=== PATIENT | male | born 1940 | race African-American/Black ===

== ENCOUNTER 2018-01-07 10:42 | Emergency (ER) | payer MEDICARE, OTHER, SELFPAY ==
--- NOTE | 2018-01-07 10:42 | DT_ITS ---
This patient was seen during an EMR downtime January 03, 2018 - January 10, 2018. This patient may have a combination of paper and electronic documentation or all paper documentation. All documentation is viewable within the e-chart portion of [employer] for each patient visit.
--- NOTE | 2018-01-07 12:34 | EKG12_ITS ---
Test Reason : HYPERTENSION Blood Pressure : / mmHG Vent. Rate : 036 BPM Atrial Rate : 234 BPM P-R Int : 000 ms QRS Dur : 182 ms QT Int : 560 ms P-R-T Axes : 000 138 -10 degrees QTc Int : 433 ms Atrial flutter Right bundle branch block T wave abnormality, consider inferior ischemia Abnormal ECG Confirmed by QUINTON ART, BETY ([id number]), acquisitions editor DYLAN ALFREDO ([id number] on 01/12/2018 5:30:55 PM Referred By: Manuel Lamas Confirmed By:BETY ALCANTARA MD
[2018-01-10 15:50] LABS: Basophil% 0.2 % (0-1); Hematocrit 39.1 % (40-54); Hemoglobin 12.7 g/dl (13.0-16.5); Lymphocyte % 39.2 % (19-41); Mean Corp Hgb Conc 32.5 g/gl (32-36); Mean Corpuscular Hgb 30.5 pg (27.0-32.0); Mean Corpuscular Volume 93.8 fL (80-94); Mean Platelet Vol. 10.1 fl (6.2-12.0); Neutrophil # 3.02 X10^3/uL (2.7-7.7); Neutrophil % 51.6 % (47-70); POSITIVE COUNT NO; POSITIVE DIFFERENTIAL NO; POSITIVE MORPHOLOGY NO; Platelet Count 261 K/mm3 (150-450); RBC Distribution Width CV 17.1 % (11.6-14.6); RBC Distribution Width SD 57.6 fl (35.1-43.9); Red Blood Count 4.17 M/mm3 (4.6-6.2); White Blood Count 5.9 K/mm3 (4.4-11.0)
[2018-01-10 15:51] LABS: Basophil# 0.01 X10^3/uL; Eosinophil# 0.06 X10^3/uL; Monocyte# 0.47 X10^3/uL
[2018-01-10 21:10] LABS: Anion Gap 12 (5-15); BUN 37 mg/dL (7-18); BUN/Creat Ratio 21.9 RATIO (10-20); Calcium,Total 9.1 mg/dL (8.5-10.1); Chloride 115 mmol/L (98-107); Creatinine, Serum 1.69 mg/dL (0.70-1.30); EST Glomerular Filtration Rate 42 mL/min (>60); Est Glom Filt Rate - Afr Amer 51 mL/min (>60); Glucose 136 mg/dL (74-106); Potassium 4.9 mmol/L (3.5-5.1); Sodium Level 144 mmol/L (136-145)
== END 2018-01-07 11:25 | disposition home or self-care (01) ==
LOC: ED 13:15
PROVIDERS: Emergency Provider Emergency Medicine; Family Provider Internal Medicine; PCP Internal Medicine
DX: I10 Essential (primary) hypertension (principal); I48.2 Chronic atrial fibrillation; R00.1 Bradycardia, unspecified; R06.00 Dyspnea, unspecified; E11.9 Type 2 diabetes mellitus without complications; E78.00 Pure hypercholesterolemia, unspecified; N28.9 Disorder of kidney and ureter, unspecified
CPT/HCPCS: 80048; 84484; 85025; 93005; 99283; A4216